=== PATIENT | female | born 2000 | race Hispanic/Latino ===

== ENCOUNTER 2022-12-10 18:35 | Emergency (ER) | payer MEDICAID ==
[2022-12-10] MEDS ORDERED: Boostrix 0.5 ML (Tdap) VIAL (>/=7 yrs of age) ONE (21:11)
[2022-12-10] MEDS ORDERED: Lidocaine 1% PF 5 ML VIAL ONE (21:13)
== END 2022-12-10 22:50 | disposition home or self-care (01) ==
LOC: CSHERS 18:35
DX: S61.211A Laceration without foreign body of left index finger without damage to nail, initial encounter (principal); W26.8XXA Contact with other sharp object(s), not elsewhere classified, initial encounter; Z23 Encounter for immunization
CPT/HCPCS: 12001; 90471; 90715

== ENCOUNTER 2023-05-16 15:25 | Emergency (ER) | payer MEDICAID | END 2023-05-16 16:07 | disposition home or self-care (01) | LOC: CSHERS 15:25 | DX: H10.502 Unspecified blepharoconjunctivitis, left eye (principal) | CPT/HCPCS: 99283 ==